=== PATIENT | female | born 1965 | race African-American/Black ===

== ENCOUNTER → 2017-03-23 | Outpatient (CLI) | payer BC, OTHER ==
[~2017-03-23] MED LIST: ACET325T38 PO; ACHD5005 PO; CALC-140 PO; CRAN450T9 PO; ESTRADIOL; IBUP200T48 PO; LACT1CAP62 PO; LEVO500T69 PO; LORA10CA PO; NF-ESOM40C PO; VITAMINES
--- NOTE | 2017-03-23 11:01 | Diagnostic Imaging Report ---
INDICATION: Routine screening. COMPARISON: 12/19/2014 and 01/06/2011. TECHNIQUE: Screening digital mammography was performed bilaterally with a Computer Aided Detection (CAD) system. FINDINGS: Both breasts are heterogeneously dense, limiting the sensitivity of mammography. No dominant mass or malignant appearing microcalcifications are seen. The axillae are unremarkable. IMPRESSION: No mammographic features suspicious for malignancy are identified. ACR BI-RADS Category 1: Negative. Result letter will be mailed to the patient. Note: At least 10% of breast cancer is not imaged by mammography. Dictated by: Dictated on workstation # [id number]
== END ==
LOC: RAD 08:31
PROVIDERS: ATTEND Family Medicine
DX: Z12.31 Encounter for screening mammogram for malignant neoplasm of breast (principal)
CPT/HCPCS: 77067

== ENCOUNTER 2018-07-06 06:27 | Outpatient (CLI) | payer BC ==
[~2018-07-06] VITALS: Ht 167.6 cm; Wt 82.1 kg
[2018-07-06] MEDS ORDERED: ESTR1TAB24 PO (13:21)
[2018-07-06] MEDS ORDERED: CALC-140 PO (13:26)
[2018-07-06] MEDS ORDERED: LORA10TA7 PO (13:26)
[2018-07-06] MEDS ORDERED: BIOT800T PO (13:26)
== END 2018-07-06 13:27 | disposition home or self-care (01) ==
LOC: PREOP 06:27
PROVIDERS: ATTEND Surgery
DX: Z01.818 Encounter for other preprocedural examination (principal)

== ENCOUNTER 2018-07-08 10:49 | Day surgery (SDC) | payer BC ==
[~2018-07-08] VITALS: Ht 167.6 cm; Wt 82.1 kg
[~2018-07-08 10:49] MED LIST changes: +BIOT800T PO; +ESTR1TAB24 PO; +LORA10TA7 PO
[2018-07-08] MEDS ORDERED: NS IV 500 ML 500 ML IV PRN (11:07)
[2018-07-08] MEDS ORDERED: NS IV 500 ML 500 ML ONE (11:07)
[2018-07-08] MEDS ORDERED: ONDANSETRON 4 MG/2 ML (SDV) Z0FRAN IV PRN (11:15)
[2018-07-08] MEDS ORDERED: MIDAZOLAM 2 MG/2 ML (VERSED) VIAL IVP ONE (11:15)
[2018-07-08] MEDS ORDERED: HYDROcodone/APAP 5 MG/325 MG (LORTAB) TAB PO PRN (11:15)
[2018-07-08] MEDS ORDERED: LIDOCAINE JELLY 2% 6 ML SYRINGE MM PRN (11:15)
[2018-07-08] MEDS ORDERED: ACETAMINOPHEN 325 MG TABLET PO PRN (11:15)
[2018-07-08] MEDS ORDERED: morphine INJ 10 MG/ML 1ML (SYR OR VIAL) IV PRN (11:15)
--- NOTE | 2018-07-08 11:15 | Conscious Sedation/ASA ---
Conscious Sedation Pre-Proced Time 11:00 ASA Score 2 For ASA 3 and 4: Consider anesthesia and medical clearance. Also, for patients with a history of failed moderate sedation consider anesthesia. Airway Lungs Heart ASA score ASA 1: a normal healthy patient ASA 2: a patient with a mild systemic disease (mid diabetes, controlled hypertension, obesity ASA 3: a patient with a severe systemic disease that limits activity (angina , COPD, prior Myocardial infarction) ASA 4: a patient with an incapacitating disease that is a constant threat to life (CHF, renal failure) ASA 5: a moribund patient not expected to survive 24 hrs. (ruptured aneurysm) ASA 6: a declared brain- patient whose organs are being harvested. For emergent operations, add the letter E after the classification Mallampati Classification Grade 2 Sedation Plan Analgesia, Amnesia, Plan communicated to team members, Discussed options with patient/fam, Discussed risks with patient/fam The patient is an appropriate candidate to undergo the planned procedure, sedation, and anesthesia. The patient immediately re-assessed prior to indication. GIL CASAS MD July 08, 2018 11:15
--- NOTE | 2018-07-08 11:15 | Progress Note-Pre Operative ---
Pre-Operative Progress Note H&P Reviewed The H&P was reviewed, patient examined and no changes noted. Date Seen by Provider: July 08, 2018 Time Seen by Provider: 11:00 Date H&P Reviewed: July 08, 2018 Time H&P Reviewed: 11:00 Pre-Operative Diagnosis: screening, hx polyp GIL CASAS MD July 08, 2018 11:15
--- NOTE | 2018-07-08 11:17 | Discharge Inst-Surgical ---
D/C Lap Instructions-[place] Follow Up 10yrs Activity as tolerated High Fiber Diet 25g or more per day Avoid Alcohol, Caffeine, Spicy [place] and Acid foods. Drink 64 fluid oz or more of fluids per day. Symptoms to Report: Fever over 101 degree F, Nausea/Vomiting If any problems/questions: Contact your physician or go to Emergency Room GIL CASAS MD July 08, 2018 11:17
[2018-07-08 11:30] VITALS: BP 129/90
[2018-07-08 12:15] VITALS: BP 96/51
[2018-07-08] MEDS ORDERED: MIDAZOLAM 2 MG/2 ML (VERSED) VIAL ONE ×5 (12:28)
[2018-07-08] MEDS ORDERED: fentaNYL INJECTION 100 MCG/2 ML AMP ONE ×2 (12:29)
[2018-07-08] MEDS ORDERED: LIDOCAINE JELLY 2% 6 ML SYRINGE ONE (12:29)
[2018-07-08] MEDS: fentaNYL INJECTION 100 MCG/2 ML AMP IVP ONE (12:38)
[2018-07-08 13:30] VITALS: BP 117/72
[2018-07-08 14:00] VITALS: BP 126/71
--- NOTE | 2018-07-08 14:40 | NUR ---
PT UP TO GET DRESSED, PT BECAME NAUSEATED AND VOMITED SMALL AMOUNT OF BILE, DR. CASAS CALLED AND NOTIFIED, NEW ORDERS RECEIVED.
[2018-07-08] MEDS ORDERED: ONDANSETRON 4 MG (ZOFRAN) ORAL DISSOLVE TAB PO NR (14:44)
[2018-07-08 14:55] VITALS: BP 126/71
--- NOTE | 2018-07-09 00:51 | OPERATIVE REPORT ---
DATE OF SERVICE: 07/08/2018 ATTENDING PRIMARY CARE PHYSICIAN: Dr. Lamas. PREOPERATIVE DIAGNOSIS: History of colon polyp, screening colonoscopy. POSTOPERATIVE DIAGNOSIS: Chronic stage II external and internal hemorrhoids, remainder rectum and colon were normal. PROCEDURE: Colonoscopy. SURGEON: Gil Casas MD ANESTHESIA: Conscious sedation. ESTIMATED BLOOD LOSS: Minimal. FINDINGS: Chronic stage II external and internal hemorrhoids, not actively edematous nor no bleeding. The remainder of the rectum and colon were normal. There were no polyps or any neoplasms identified throughout the colon or rectum. DISPOSITION: The patient tolerated the procedure well. INDICATIONS: The patient is a 52-year-old female in need of a screening colonoscopy. Her last colonoscopy was in 2006 due to rectal bleeding and a polyp was identified, biopsied and found to be benign. She states that she is otherwise doing well. Does not report any blood in her stools as well as no major issues of diarrhea nor constipation. She does have a family history of breast cancer with her sister having the disease being diagnosed around 40 years of age. There is no known family history of colon cancer. DESCRIPTION OF PROCEDURE: The patient was brought to the endoscopy suite, laid in the left lateral decubitus position. After adequate IV pain and sedative medications and conscious sedation anesthesia, a digital rectal examination was performed. Mild chronic stage II external and internal hemorrhoids were identified, which are not actively edematous nor inflamed and no bleeding. Normal sphincter tone was felt and there were no palpable masses. The endoscope was then intubated to the anus and rectum gently insufflated. The endoscope was then advanced through the valves of Andrews of the rectum with no polyps or any neoplasms identified. The endoscope was then advanced to the sigmoid colon where no diverticulosis identified. The endoscope was then advanced to the remainder of the descending, transverse and ascending colon to the cecum. These segments were normal. There were no polyps or any neoplasms identified throughout the colon or rectum. The endoscope was slowly withdrawn while taking a second look and suctioning of residual air with no additional findings. The patient tolerated the procedure well. We will recommend continued medical management with a high fiber diet with at least 25 grams of fiber per day as well as significant amounts of water to promote soft stools on a daily basis. She does not need another colonoscopy for another 10 years. Job ID: [id number] DocumentID: [id number] Dictated Date: 07/08/2018 13:17:54 Credit Support Counselor Date: 07/09/2018 00:50:33 Dictated By: GIL CASAS MD
== END 2018-07-08 14:55 | disposition home or self-care (01) ==
LOC: ENDO 10:49
PROVIDERS: ATTEND Surgery
DX: Z12.11 Encounter for screening for malignant neoplasm of colon (principal); K64.1 Second degree hemorrhoids; Z86.010 Personal history of colon polyps; M06.9 Rheumatoid arthritis, unspecified; F17.210 Nicotine dependence, cigarettes, uncomplicated; Z79.899 Other long term (current) drug therapy

== ENCOUNTER → 2019-02-14 | Outpatient (CLI) | payer BC ==
--- NOTE | 2019-02-14 16:29 | Diagnostic Imaging Report ---
INDICATION: Routine screening. Comparison is made with prior mammograms from 03/23/2017 and 12/19/2014. 2-D and 3-D bilateral screening mammography was performed with CAD. Both breasts are heterogeneously dense, limiting the sensitivity of mammography. The parenchymal pattern is stable. No mass or malignant appearing microcalcifications are seen. The axillae are unremarkable. IMPRESSION: BI-RADS Category 1 No mammographic features suspicious for malignancy are identified. ACR BI-RADS Category 1: Negative. Result letter will be mailed to the patient. Note: At least 10% of breast cancer is not imaged by mammography. Dictated by: Dictated on workstation # [id number]
== END ==
LOC: RAD 15:40
PROVIDERS: ATTEND Family Medicine
DX: Z12.31 Encounter for screening mammogram for malignant neoplasm of breast (principal)
CPT/HCPCS: 77067

== ENCOUNTER → 2022-06-08 | Outpatient (CLI) | payer BC | LOC: RAD 10:07 | PROVIDERS: ATTEND Nurse Practitioner Family | DX: R07.9 Chest pain, unspecified (principal) | CPT/HCPCS: 93005 ==

== ENCOUNTER → 2022-06-29 | Outpatient (CLI) | payer BC ==
--- NOTE | 2022-06-29 12:24 | Diagnostic Imaging Report ---
INDICATION: Routine screening. COMPARISON: 02/14/2019 and 03/23/2017. TECHNIQUE: 2D and 3D bilateral screening mammography was performed with CAD. FINDINGS: Both breasts are heterogeneously dense, limiting the sensitivity of mammography. The parenchymal pattern is stable. No mass or malignant-appearing microcalcifications are seen. The axillae are unremarkable. IMPRESSION: No mammographic features suspicious for malignancy are identified. ACR BI-RADS Category 1: Negative. Result letter will be mailed to the patient. Note: At least 10% of breast cancer is not imaged by mammography. Dictated by: Dictated on workstation # [id number]
== END ==
LOC: RAD 09:15
PROVIDERS: ATTEND Family Medicine
DX: Z12.31 Encounter for screening mammogram for malignant neoplasm of breast (principal)
CPT/HCPCS: 77063; 77067

== ENCOUNTER 2022-10-23 00:01 | Emergency (ER) | payer BC ==
[~2022-10-23] VITALS: Ht 167.6 cm; Wt 77.7 kg
[2022-10-23] MEDS ORDERED: MELO7.5T46 (00:11)
--- NOTE | 2022-10-23 00:14 | ED Headache ---
General Chief Complaint: Head/Cervical Problems Stated Complaint: HAIRSTON Source: patient Exam Limitations: no limitations History of Present Illness Date Seen by Provider: Oct 23, 2022 Time Seen by Provider: 00:14 Initial Comments Patient is a 57-year-old female who presents to the emergency room with a chief complaint of right-sided headache. Patient states that she was lying in bed at 11 PM tonight when she had sudden onset of severe headache. She states the r ight side of her face hurts. Her right eye is painful and she feels like it was draining. She states that her eye is blurry on the right due to the drainage. She states she has had a headache similar to this in the past with the same intensity but she cannot recall when it was. That is well required an ER visit. She states at headache onset she took 2 extra strength Tylenol as well as 2 ibuprofen but they have not relieved her headache. She states she is nauseous. Light makes the headache worse. She states she feels she needs to constantly move to try and relieve the headache. She denies neck pain. No chest pain or shortness of breath. No abdominal pain. No other complaints of recent illness. She has a history of "sinus" and frequently has sinus headaches. Timing/Duration: 1 hour Severity/Quality: severe, throbbing Location: temporal (right temporal) Prior Headaches/Recent Trauma: occasional headaches Modifying Factors: worse with exposure to light Associated Symptoms: nausea/vomiting Allergies and Home Medications Allergies Coded Allergies: No Known Drug Allergies (Verified , 06/24/07) Patient Home Medication List Home Medication List Reviewed: Yes Biotin (Biotin) 800 Mcg Tablet, 800 MCG PO DAILY, (Reported) Entered as Reported by: SMITA ORDAZ on 07/06/18 1326 Calcium Carbonate/Vitamin D3 (Calcium + Vitamin D Tablet) 1 Each Tablet, 1 EACH PO DAILY, (Reported) Entered as Reported by: SMITA ORDAZ on 07/06/18 1326 Estradiol (Estradiol Tablet) 1 Mg Tablet, 1 MG PO DAILY, (Reported) Entered as Reported by: SMITA ORDAZ on 07/06/18 1321 Loratadine (Loratadine) 10 Mg Tablet, 10 MG PO DAILY, (Reported) Entered as Reported by: SMITA ORDAZ on 07/06/18 1326 Meloxicam (Meloxicam) 7.5 Mg Tablet, (Reported) Entered as Reported by: ELSI GOMEZ on 10/23/22 0011 Last Action: New Order Review of Systems Review of Systems Constitutional: see HPI Eyes: Drainage (right eye), Decreased Acuity (right eye) Ears, Nose, Mouth, Throat: no symptoms reported Respiratory: no symptoms reported Cardiovascular: no symptoms reported Gastrointestinal: nausea Genitourinary: no symptoms reported Musculoskeletal: no symptoms reported Skin: no symptoms reported Psychiatric/Neurological: Headache; Denies Paresthesia, Denies Weakness Past Vbdgxow-Xhsyio-Bfrvkd Hx Patient Social History Tobacco Use?: Yes Substance use?: No Alcohol Use?: No Pt feels they are or have been: No Immunizations Up To Date First/Initial COVID19 Vaccinat: none Seasonal Allergies Seasonal Allergies: Yes Past Medical History Surgery/Hospitalization HX: hysterectmy, ovarian cyst, henria repair, sinus headaches Surgeries: Yes (HERNIA, PARTIAL HYST, FIBROID REMOVAL, FINGER REPAIR, cyst removal) Abdominal, Appendectomy, Bladder Surgery, Hysterectomy, Orthopedic, Tubal Ligation Respiratory: No Cardiac: No High Cholesterol Neurological: No Reproductive Disorders: No VICE ADMIRAL History: Hysterectomy Genitourinary: No Gastrointestinal: Yes Gastroesophageal Reflux, Polyps Musculoskeletal: No Endocrine: No HEENT: No Cancer: No Psychosocial: No Integumentary: No Blood Disorders: No Family Medical History Cancer Physical Exam Vital Signs Vital Signs - First Documented 10/23/22 00:05 Temp 36.4 Pulse 96 Resp 16 B/P (MAP) 127/87 (100) Pulse Ox 96 O2 Delivery Room Air Capillary Refill : Height, Weight, BMI Height: 5'6.00" Weight: 181lbs. 0.0oz. 82.575125jj; 29.2 BMI Method:Stated General Appearance: WD/WN, moderate distress, other (distressed holding a wet wash rag to the right side of her forehead. eyes closed, moaning) HEENT: PERRL/EOMI, normal ENT inspection, other (tender to touch diffusely around the right eye, forehead and temporal area on the right) Neck: full range of motion, supple, other (no meningismus) Cardiovascular: regular rate, rhythm Respiratory: lungs clear, normal breath sounds, no respiratory distress, no accessory muscle use Gastrointestinal: non tender, soft Extremities: normal range of motion, normal inspection Psychiatric: alert, oriented x 3 Crainal Nerves: normal hearing, normal speech, PERRL; No abnormal eye position Coordination/Gait: negative Romberg's sign Motor/Sensory: no motor deficit, no sensory deficit, no pronator drift Skin: normal color, warm/dry Progress/Results/Core Measures Results/Orders Lab Results Laboratory Tests Test 10/23/22 00:28 Range/Units White Blood Count 10.8 4.3-11.0 10^3/uL Red Blood Count 4.33 3.80-5.11 10^6/uL Hemoglobin 13.6 11.5-16.0 g/dL Hematocrit 40 35-52 % Mean Corpuscular Volume 92 80-99 fL Mean Corpuscular Hemoglobin 31 25-34 pg Mean Corpuscular Hemoglobin Concent 34 32-36 g/dL Red Cell Distribution Width 13.0 10.0-14.5 % Platelet Count 327 130-400 10^3/uL Mean Platelet Volume 11.1 9.0-12.2 fL Immature Granulocyte % (Auto) 0 % Neutrophils (%) (Auto) 48 42-75 % Lymphocytes (%) (Auto) 37 12-44 % Monocytes (%) (Auto) 10 0-12 % Eosinophils (%) (Auto) 4 0-10 % Basophils (%) (Auto) 1 0-10 % Neutrophils # (Auto) 5.2 1.8-7.8 10^3/uL Lymphocytes # (Auto) 4.0 1.0-4.0 10^3/uL Monocytes # (Auto) 1.1 H 0.0-1.0 10^3/uL Eosinophils # (Auto) 0.4 H 0.0-0.3 10^3/uL Basophils # (Auto) 0.1 0.0-0.1 10^3/uL Immature Granulocyte # (Auto) 0.0 0.0-0.1 10^3/uL Erythrocyte Sedimentation Rate 29 0-30 MM/HR Sodium Level 138 135-145 MMOL/L Potassium Level 3.6 3.6-5.0 MMOL/L Chloride Level 104 98-107 MMOL/L Carbon Dioxide Level 24 21-32 MMOL/L Anion Gap 10 5-14 MMOL/L Blood Urea Nitrogen 15 7-18 MG/DL Creatinine 0.72 0.60-1.30 MG/DL Estimat Glomerular Filtration Rate 99 BUN/Creatinine Ratio 21 Glucose Level 120 H 70-105 MG/DL Calcium Level 9.8 8.5-10.1 MG/DL My Orders Orders - JUDITH ANAYA MD Ed Iv/Invasive Line Start (10/23/22 00:23) Cbc With Automated Diff (10/23/22 00:23) Erythrocyte Sedimentation Rate (10/23/22 00:23) Basic Metabolic Panel (10/23/22 00:23) Prochlorperazine Injection (Compazine In (10/23/22 00:30) Diphenhydramine Injection (Diphenhydram (10/23/22 00:30) Ns Iv 500 Ml (Ns Iv 500 Ml) (10/23/22 00:23) Antacid Suspension (Antacid Suspension (10/23/22 01:00) Ketorolac Injection (Ketorolac Injection (10/23/22 01:00) Diphenhydramine Injection (Diphenhydram (10/23/22 01:30) Fentanyl Injection (Fentanyl Injection (10/23/22 01:30) Ct Head Wo (10/23/22 01:29) Medications Given in ED Current Medications Medications Dose Ordered Sig/Maki Route Start Time Stop Time Status Last Admin Dose Admin Al Hydrox/Mg Hydrox/Simethicone 30 ml ONCE ONCE PO 10/23/22 01:00 10/23/22 01:01 DC 10/23/22 01:05 30 ML Diphenhydramine HCl 25 mg ONCE ONCE IVP 10/23/22 00:30 10/23/22 00:31 DC 10/23/22 00:34 25 MG Diphenhydramine HCl 25 mg ONCE ONCE IVP 10/23/22 01:30 10/23/22 01:31 DC 10/23/22 01:30 25 MG Fentanyl Citrate 50 mcg ONCE ONCE IVP 10/23/22 01:30 10/23/22 01:31 DC 10/23/22 01:30 50 MCG Ketorolac Tromethamine 15 mg ONCE ONCE IVP 10/23/22 01:00 10/23/22 01:02 DC 10/23/22 01:05 15 MG Prochlorperazine Edisylate 10 mg ONCE ONCE IV 10/23/22 00:30 10/23/22 00:31 DC 10/23/22 00:33 10 MG Vital Signs/I&O 10/23/22 10/23/22 00:05 02:42 Temp 36.4 Pulse 96 86 Resp 16 16 B/P (MAP) 127/87 (100) 127/87 (100) Pulse Ox 96 99 O2 Delivery Room Air Room Air Progress Progress Note : Time: 03:56 Progress Note Patient seen and evaluated by me. Evaluation today includes physical exam, CBC, chemistry, sed rate and CT head without contrast to rule out subarachnoid hemorrhage. Pertinent physical exam findings well-developed well-nourished 57-year-old female in moderate to severe distress secondary to right-sided headache. Cranial nerves are intact, no facial asymmetry no speech deficit. Normal visual escobar. Extraocular muscles intact. She has normal strength and sensation throughout. She is quite apprehensive of exam so neurologic exam is challenging. Heart is regular, lungs are clear. She is afebrile normal vital signs. Differential diagnosis based on history and physical exam includes acute subarachnoid hemorrhage, migraine headache, temporal arteritis Labs, imaging independently reviewed and interpreted by me. Her CBC is normal. Her sed rate is undetectable. Her chemistry is normal. According to guidelines for evaluation of subacute hemorrhage CT scan without contrast was ordered. She has a normal neurologic exam. She is not anemic. CT is able to be obtained with thin cuts, and it is read by the radiologist as negative which is consistent with my evaluation of the CT. This makes her risk of acute subarachnoid hemorrhage very low. Patient is treated in the emergency department with 10 mg of Compazine IV a total of 50 mg of Benadryl, 50 mcg of fentanyl. Patient had rapid improvement in her headache after the IV fentanyl. She has been resting comfortably since her CT. She remains asymptomatic. No concerning findings for subarachnoid or brain tumor or any other acute pathology. I have advised her to drink plenty of fluids over the next 24 hours. I have advised her also to take some ibuprofen with breakfast later this morning. She is comfortable with the plan of care. No concerning findings for subarachnoid hemorrhage, tumor or other acute pathology. All questions were sought and answered. Patient is stable for discharge Diagnostic Imaging Diagonstic Imaging: CT Comments CT head noncontrast independently reviewed and interpreted by me, no acute findings. This is consistent with stat rad interpretation Departure Impression Primary Impression: Headache Qualified Codes: R51.9 - Headache, unspecified Disposition: 01 HOME, SELF-CARE Condition: Improved Departure-Patient Inst. Decision time for Depature: 04:01 Referrals: FER SEVILLA DO (PCP/Family) Primary Care Physician Patient Instructions: Headache, Adult ED Add. Discharge Instructions: Drink plenty of fluids over the next 24 hours to stay well-hydrated. You can take fite-bhl-awjazfk ibuprofen 3 tablets which is 600 mg every 6 hours with food as needed for any residual ache and pain. If you develop a return of headache especially with one-sided weakness, numbness, slurred speech, vision issues please return to the emergency department for reevaluation. Please follow-up in a week with your primary care provider, a copy of your labs, chart and imaging have been sent to your primary care office for their review. Work/School Note: Work Release Form Date Seen in the Emergency Department: Oct 23, 2022 Return to Work: Oct 26, 2022 Copy Copies To 1: FER SEVILLA KATHRYN M MD Oct 23, 2022 00:14
[2022-10-23] MEDS ORDERED: NS IV 500 ML 500 ML IV STA (00:23)
[2022-10-23] MEDS ORDERED: diphenhydrAMINE INJ 50 MG/ML VIAL IVP ONE ×2 (00:30→01:30)
[2022-10-23] MEDS ORDERED: PROCHLORPERAZINE INJ 10 MG/2ML VIAL IV ONE (00:30)
[2022-10-23 00:42] LABS: BASOPHILS # (AUTO) 0.1 10^3/uL (0.0-0.1); BASOPHILS % (AUTO) 1 % (0-10); EOSINOPHILS # (AUTO) 0.4 10^3/uL (0.0-0.3); EOSINOPHILS % (AUTO) 4 % (0-10); HEMATOCRIT 40 % (35-52); HEMOGLOBIN 13.6 g/dL (11.5-16.0); LYMPHOCYTES % (AUTO) 37 % (12-44); MEAN CORPUSCULAR HEMOGLOBIN 31 pg (25-34); MEAN CORPUSCULAR HGB CONC 34 g/dL (32-36); MEAN CORPUSCULAR VOLUME 92 fL (80-99); MEAN PLATELET VOLUME 11.1 fL (9.0-12.2); MONOCYTES # (AUTO) 1.1 10^3/uL (0.0-1.0); MONOCYTES % (AUTO) 10 % (0-12); NEUTROPHILS # (AUTO) 5.2 10^3/uL (1.8-7.8); NEUTROPHILS % (AUTO) 48 % (42-75); PLATELET COUNT 327 10^3/uL (130-400); WHITE BLOOD COUNT 10.8 10^3/uL (4.3-11.0)
[2022-10-23 00:50] LABS: POTASSIUM 3.6 MMOL/L (3.6-5.0)
[2022-10-23 00:51] LABS: CALCIUM 9.8 MG/DL (8.5-10.1)
[2022-10-23 00:55] LABS: CREATININE SERUM 0.72 MG/DL (0.60-1.30)
[2022-10-23] MEDS ORDERED: KETOROLAC INJ 30 MG/ML VIAL IVP ONE (01:00)
[2022-10-23] MEDS ORDERED: ANTACID SUSPENSION 30 ML UDC PO ONE (01:00)
[2022-10-23 01:05] LABS: ERYTHROCYTE SEDIMENTATION RATE 29 MM/HR (0-30)
[2022-10-23] MEDS ORDERED: fentaNYL INJECTION 100 MCG/2 ML VIAL IVP ONE (01:30)
[2022-10-23 04:04] VITALS: BP 116/71
--- NOTE | 2022-10-23 06:27 | Diagnostic Imaging Report ---
PROCEDURE: CT head without contrast. TECHNIQUE: Multiple contiguous axial images were obtained through the brain without the use of intravenous contrast. Auto Exposure Controls were utilized during the CT exam to meet ALARA standards for radiation dose reduction. INDICATION: 57-year-old female with severe right-sided headache with sudden onset of symptoms. COMPARISONS: None FINDINGS: Midline structures are not displaced. Lateral, 3rd and 4th ventricles are normal in size, shape and anatomic position. There is no mass, mass effect, hydrocephalus or hemorrhage. Nassar-white differentiation is normal. There is no sulcal effacement. There are no abnormal extra-axial fluid collections or hemorrhage. Basilar cisterns appear normal. Sinuses, orbits and mastoid air cells are unremarkable. Bone windows show no calvarial changes. IMPRESSION: Unremarkable nonenhanced CT brain. Dictated by: Dictated on workstation # [id number]
== END 2022-10-23 04:07 | disposition home or self-care (01) ==
LOC: EDUNIT# 00:01 → ER 00:03
DX: R51.9 Headache, unspecified (principal); Z28.310 Unvaccinated for COVID-19
CPT/HCPCS: 36415; 70450; 80048; 85025; 85652